=== PATIENT | male | born 1995 | race Caucasian/White ===

== ENCOUNTER 2023-11-28 10:03 | Emergency (ER) | payer MEDICAID, SELFPAY ==
[2023-11-28 10:12] VITALS: BP 175/89; PULSE 95; RESP 18; TEMP 36.9; O2SAT 100
--- NOTE | 2023-11-28 10:19 | ED.GENADULT ---
HPI - General Adult General Chief complaint: Unspecified Stated complaint: HOMELESS, WALKING ON [address]HW[address], FEET HURT Time Seen by Provider: 11/28/23 10:19 Focused HPI: This is a 28-year-old male that presents to emergency department for pain in his feet. Patient has been walking a lot as he is homeless. His feet are painful and itchy. GENERAL: Well-appearing, well-nourished, and in no acute distress. HEAD: Normocephalic, atraumatic. CHEST: Clear to auscultation. ?No respiratory distress. HEART: Regular rate and rhythm.? NEURO: ?Alert and oriented x3. Patient screened in triage and initial orders placed.? ?Additional care and disposition to be based upon?diagnostic testing and treatment. Related Data Allergies Allergy/AdvReac Type Severity Reaction Status Date / Time No Known Allergies Allergy Verified 11/28/23 11:12 Review of Systems Review of Systems: CONSTITUTIONAL: Denies fever SKIN: Reports rash and itching. All systems reviewed & are unremarkable except as noted in HPI and below PMFSH Past Medical History Medical History (Updated 11/28/23 @ 12:08 by Alisha Wagner PA-C) No active medical problems Social History Social History (Updated 11/28/23 @ 12:07 by Alisha Wagner PA-C) Substance use: never Exam Narrative: GENERAL: Well-appearing, well-nourished, and in no acute distress. HEAD: Normocephalic, atraumatic. EYES: EOMI. EXTREMITIES: Normal range of motion. Erythema and scaling of the feet and toes which is moist SKIN: Warm, dry, no rash. NEURO: No focal deficits. Alert and oriented x3. PSYCH: Normal mood and affect Course Course Emergency Course: Patient given resources and fed Vital Signs Vital signs: Vital Signs Temperature 98.4 F 11/28/23 10:12 Pulse Rate 95 11/28/23 10:12 Respiratory Rate 18 11/28/23 10:12 Blood Pressure 175/89 H 11/28/23 10:12 Pulse Oximetry 100 11/28/23 10:12 Temperature 98.4 F 11/28/23 10:12 Pulse Rate 71 11/28/23 11:12 Respiratory Rate 16 11/28/23 11:12 Blood Pressure 133/89 11/28/23 11:12 Pulse Oximetry 100 11/28/23 11:12 Medical Decision Making MDM Narrative Medical decision making narrative: Patient presents to the emergency department after being picked up by EMS because he was walking on the highway. Patient is homeless. Reporting that his feet hurt. His exam is consistent with tinea pedis. Will be started on miconazole cream. He has no others concerns. He was given resources for his homelessness. Discharged in stable condition Vital Signs Vital Signs: Vital Signs Temperature 98.4 F 11/28/23 10:12 Pulse Rate 95 11/28/23 10:12 Respiratory Rate 18 11/28/23 10:12 Blood Pressure 175/89 H 11/28/23 10:12 Pulse Oximetry 100 11/28/23 10:12 Temperature 98.4 F 11/28/23 10:12 Pulse Rate 71 11/28/23 11:12 Respiratory Rate 16 11/28/23 11:12 Blood Pressure 133/89 11/28/23 11:12 Pulse Oximetry 100 11/28/23 11:12 Critical Care Time Critical Care Time Critical Care Time: No Discharge Plan Discharge Clinical Impression: Tinea pedis Qualifiers: Laterality: bilateral Qualified Code(s): B35.3 - Tinea pedis Patient Disposition: Home, Self-Care Condition: Stable Instructions: Skin Yeast Infection (ED) Additional Instructions: Return to the emergency department if you experience fever, chest pain, shortness of breath, abdominal pain with nausea and vomiting, weakness, numbness, or any other symptoms that are concerning to you. Keep your feet clean and dry. Apply miconazole cream twice daily for 4 weeks Follow up with primary care doctor Follow-up/Referrals: PHYSICIAN,F[facility] CONSERVATIONIST [Primary Care Provider] - Charli Melo MD [Physician] -
[2023-11-28 11:12] VITALS: BP 133/89; PULSE 71; RESP 16; O2SAT 100
[2023-11-28] MEDS: MICONAZOLE NITRATE 2% CREAM 30 GM TUBE 1 APPLIC TOPICAL (11:27)
== END 2023-11-28 12:30 | disposition home or self-care (01) ==
PROVIDERS: Emergency Provider Physician Assistant
DX: B35.3 Tinea pedis (principal)
CPT/HCPCS: 99283; A9270